=== PATIENT | female | born 1990 | race Caucasian/White ===

== ENCOUNTER 2017-11-01 14:06 | Inpatient (IN) | payer OTHER ==
[~2017-11-01] VITALS: Ht 172.7 cm; Wt 79.5 kg
[2017-11-03] MEDS: LACTATED RINGERS 1,000 ML IV SCH (20:50)
[2017-11-03] MEDS: D5%-LACTATED RINGERS 1,000 ML IV SCH (20:55)
[2017-11-03] MEDS ORDERED: OXYTOCIN 30U/ 0.9% NaCL 500ML 500 ML IV PRN ×2 (20:55)
[2017-11-03] MEDS ORDERED: AMPICILLIN 2 GM in SODIUM CHLORIDE 0.9% 100 ML IVPB STA (20:55)
[2017-11-03] MEDS ORDERED: OXYTOCIN 30U/ 0.9% NaCL 500ML 500 ML IV ONE (20:55)
[2017-11-03] MEDS ORDERED: FENTANYL PF 100 MCG/2ML IV PRN (21:00)
[2017-11-03] MEDS ORDERED: SODIUM CITRATE/CITRIC ACID 30 ML UDC PO PRN (21:00)
[2017-11-03] MEDS ORDERED: ONDANSETRON 2MG/ML, 2ML IVPush PRN (21:00)
[2017-11-03 21:19] LABS: BASOPHILS # (AUTO) 0.05 x10^3/uL (0-0.1); BASOPHILS % (AUTO) 1 % (0-1); EOSINOPHILS # (AUTO) 0.02 x10^3/uL (0-0.4); EOSINOPHILS % (AUTO) 0 % (1-7); LYMPHOCYTES # (AUTO) 1.58 x10^3/uL (1-3.4); LYMPHOCYTES % (AUTO) 16 % (22-44); MD NO; MEAN CORPUSCULAR HEMOGLOBIN 30.2 pg (27.0-34.8); MEAN CORPUSCULAR VOLUME 88.7 fL (80-100); MONOCYTES # (AUTO) 0.56 x10^3/uL (0.2-0.8); MONOCYTES % (AUTO) 6 % (2-9); NEUTROPHILS # (AUTO) 7.66 x10^3/uL (1.8-6.8); NEUTROPHILS % (AUTO) 78 % (42-75); PLATELET COUNT 134 x10^3/uL (130-400); RED BLOOD COUNT 4.43 x10^6/uL (3.82-5.3); RED CELL DISTRIBUTION WIDTH 13.9 % (9.6-15.2)
[2017-11-03 21:23] VITALS: BP 133/86
[2017-11-03] MEDS ORDERED: PREN-3 PO (22:29)
[2017-11-03] MEDS ORDERED: OXYTOCIN 30U/ 0.9% NaCL 500ML 500 ML ONE (22:30)
[2017-11-03] MEDS ORDERED: MISOPROSTOL 200 MCG TABLET ONE (22:31)
[2017-11-03] MEDS ORDERED: LIDOCAINE 1%, 20ML ONE (22:31)
[2017-11-04] MEDS: AMPICILLIN 1 GM in SODIUM CHLORIDE 0.9% 50 ML IVPB SCH ×4 (01:47→13:00)
[2017-11-04] MEDS: LACTATED RINGERS 1,000 ML IV SCH ×2 (04:31→12:55)
[2017-11-04] MEDS: D5%-LACTATED RINGERS 1,000 ML IV SCH ×2 (04:55→12:55)
[2017-11-04] MEDS ORDERED: FENTANYL PF 100 MCG/2ML ONE ×2 (06:49→08:00)
[2017-11-04] MEDS: FENTANYL PF 100 MCG/2ML IVPush PRN ×2 (06:51→08:00)
[2017-11-04] MEDS ORDERED: FENTANYL/BUPIV./NS/PF 250 ML EPIDCONT ONE ×2 (08:14→08:16)
[2017-11-04] MEDS ORDERED: LIDOCAINE-MPF 2% ,5ML ONE (08:14)
[2017-11-04] MEDS ORDERED: NEWBORN KIT ONE (08:15)
[2017-11-04] MEDS ORDERED: FENTANYL/BUPIV./NS/PF 250 ML EPIDCONT SCH (08:42)
[2017-11-04] MEDS ORDERED: LACTATED RINGERS 1,000 ML IV SCH (08:42)
[2017-11-04] MEDS ORDERED: LACTATED RINGERS 1,000 ML IVBOLUS PRN (09:00)
[2017-11-04] MEDS ORDERED: NALOXONE 0.4 MG/ML, 1ML IVPush PRN (09:00)
[2017-11-04] MEDS ORDERED: EPHEDRINE 50 MG/ML, 1ML IVPush PRN (09:00)
[2017-11-04] MEDS ORDERED: IBUPROFEN 600 MG TABLET ONE (13:20)
[2017-11-04] MEDS ORDERED: OXYcodone/APAP 5/325MG TABLET ONE (13:20)
[2017-11-04] MEDS ORDERED: OXYTOCIN 30U/ 0.9% NaCL 500ML 500 ML ONE (13:20)
[2017-11-04] MEDS ORDERED: OXYTOCIN 30U/ 0.9% NaCL 500ML 500 ML IV SCH (13:38)
[2017-11-04] MEDS: IBUPROFEN 600 MG TABLET PO PRN (13:44)
[2017-11-04] MEDS ORDERED: ONDANSETRON 2MG/ML, 2ML IV PRN (14:00)
[2017-11-04] MEDS ORDERED: OXYcodone/APAP 5/325MG TABLET PO PRN (14:00)
[2017-11-04 15:50] VITALS: BP 125/79
[2017-11-04 20:20] VITALS: BP 131/82
[2017-11-04 21:44] LABS: BASOPHILS # (AUTO) 0.04 x10^3/uL (0-0.1); BASOPHILS % (AUTO) 0 % (0-1); EOSINOPHILS # (AUTO) 0.01 x10^3/uL (0-0.4); EOSINOPHILS % (AUTO) 0 % (1-7); LYMPHOCYTES # (AUTO) 1.54 x10^3/uL (1-3.4); LYMPHOCYTES % (AUTO) 13 % (22-44); MD NO; MEAN CORPUSCULAR HEMOGLOBIN 30.3 pg (27.0-34.8); MEAN CORPUSCULAR HGB CONC 33.8 g/dL (32.4-35.8); MEAN CORPUSCULAR VOLUME 89.6 fL (80-100); MEAN PLATELET VOLUME 10.4 fL (7.4-10.4); MONOCYTES # (AUTO) 0.62 x10^3/uL (0.2-0.8); MONOCYTES % (AUTO) 5 % (2-9); NEUTROPHILS # (AUTO) 9.78 x10^3/uL (1.8-6.8); NEUTROPHILS % (AUTO) 82 % (42-75); PLATELET COUNT 117 x10^3/uL (130-400); RED BLOOD COUNT 3.71 x10^6/uL (3.82-5.3); RED CELL DISTRIBUTION WIDTH 14.3 % (9.6-15.2)
[2017-11-05] MEDS: IBUPROFEN 600 MG TABLET PO PRN ×3 (00:09→15:01)
[2017-11-05] MEDS: DOCUSATE 100 MG CAPSULE PO PRN ×2 (00:09→10:25)
[2017-11-05 00:15] VITALS: BP 130/79
[2017-11-05 04:15] VITALS: BP 122/73
[2017-11-05 07:30] VITALS: BP 127/75
[2017-11-05] MEDS: PRENATAL VIT/IRON/FA 1 EACH TABLET PO SCH (10:25)
[2017-11-05 12:00] VITALS: BP_SYST 136; BP_SYST 147; BP_DIAS 87; BP_DIAS 94
[2017-11-05 19:30] VITALS: BP 146/92
[2017-11-06] MEDS: IBUPROFEN 600 MG TABLET PO PRN (02:39)
[2017-11-06 08:15] VITALS: BP 136/90
[2017-11-06] MEDS: PRENATAL VIT/IRON/FA 1 EACH TABLET PO SCH (08:33)
[2017-11-06] MEDS: DOCUSATE 100 MG CAPSULE PO PRN (08:34)
[2017-11-06] MEDS ORDERED: IBUP-1222 PO (13:02)
== END 2017-11-06 16:31 | disposition home or self-care (01) | DRG 775 ==
LOC: LDIP 11-03 19:55 → 2NW 11-04 15:00
PROVIDERS: ADMIT Obstetrics & Gynecology; ATTEND Obstetrics & Gynecology
PROC: 10E0XZZ Delivery of Products of Conception, External Approach (ICD-10-PCS; principal; 2017-11-04)
PROC: 3E033VJ Introduction of Other Hormone into Peripheral Vein, Percutaneous Approach (ICD-10-PCS; 2017-11-04)
PROC: 3E0R3BZ Introduction of Anesthetic Agent into Spinal Canal, Percutaneous Approach (ICD-10-PCS; 2017-11-04)
PROC: 00HU33Z Insertion of Infusion Device into Spinal Canal, Percutaneous Approach (ICD-10-PCS; 2017-11-04)
PROC: 0UQGXZZ Repair Vagina, External Approach (ICD-10-PCS; 2017-11-04)
DX: O13.4 Gestational [pregnancy-induced] hypertension without significant proteinuria, complicating childbirth (principal); O71.4 Obstetric high vaginal laceration alone; O14.04 Mild to moderate pre-eclampsia, complicating childbirth; O99.824 Streptococcus B carrier state complicating childbirth; O69.81X0 Labor and delivery complicated by cord around neck, without compression, not applicable or unspecified; Z37.0 Single live birth; Z3A.40 40 weeks gestation of pregnancy; Z90.49 Acquired absence of other specified parts of digestive tract
CPT/HCPCS: 36415; 85025; 86850; 86900; J0290; J3010; J2590; J7120

== ENCOUNTER 2017-11-03 11:54 | Outpatient (CLI) | payer OTHER ==
[~2017-11-03] VITALS: Ht 172.7 cm; Wt 79.5 kg
[2017-11-03 12:07] VITALS: BP 148/99
[2017-11-03 12:42] LABS: BASOPHILS # (AUTO) 0.03 x10^3/uL (0-0.1); BASOPHILS % (AUTO) 0 % (0-1); EOSINOPHILS # (AUTO) 0.02 x10^3/uL (0-0.4); EOSINOPHILS % (AUTO) 0 % (1-7); LYMPHOCYTES # (AUTO) 1.33 x10^3/uL (1-3.4); LYMPHOCYTES % (AUTO) 13 % (22-44); MD NO; MEAN CORPUSCULAR HEMOGLOBIN 30.1 pg (27.0-34.8); MEAN CORPUSCULAR HGB CONC 33.8 g/dL (32.4-35.8); MEAN CORPUSCULAR VOLUME 89.1 fL (80-100); MEAN PLATELET VOLUME 10.8 fL (7.4-10.4); MONOCYTES % (AUTO) 5 % (2-9); NEUTROPHILS # (AUTO) 8.03 x10^3/uL (1.8-6.8); NEUTROPHILS % (AUTO) 81 % (42-75); PLATELET COUNT 132 x10^3/uL (130-400); RED BLOOD COUNT 4.34 x10^6/uL (3.82-5.3); RED CELL DISTRIBUTION WIDTH 13.8 % (9.6-15.2)
[2017-11-03 12:52] LABS: MICROSCOPIC INDICATED
[2017-11-03 12:52] LABS: ALANINE AMINOTRANSFERASE 15 U/L (12-78); ALBUMIN 2.8 g/dL (3.4-5.0); ANION GAP 11 mmol/L (5-15); CALCIUM 8.3 mg/dL (8.5-10.1); CHLORIDE 108 mmol/L (98-107); CREATININE 0.64 mg/dL (0.55-1.02)
[2017-11-03 12:55] LABS: ALKALINE PHOSPHATASE 153 U/L (45-117); BILIRUBIN,TOTAL 0.3 mg/dL (0.2-1.0); TOTAL PROTEIN 6.6 g/dL (6.4-8.2)
[2017-11-03 13:32] LABS: CREATININE,URINE RANDOM 92.8 mg/dL
[2017-11-03] MEDS ORDERED: PREN-3 PO (22:29)
== END 2017-11-03 14:15 | disposition home or self-care (01) ==
LOC: LDOP 11:54
PROVIDERS: ATTEND Obstetrics & Gynecology
DX: O13.3 Gestational [pregnancy-induced] hypertension without significant proteinuria, third trimester (principal); Z3A.40 40 weeks gestation of pregnancy
CPT/HCPCS: 36415; 59025; 80053; 81001; 82570; 84156; 84550; 85025; 99201; G0463

== ENCOUNTER 2019-02-01 08:51 | Emergency (ER) | payer OTHER ==
[~2019-02-01] VITALS: Ht 170.2 cm; Wt 58.7 kg
[~2019-02-01 08:51] MED LIST: DOXY100C2 PO; IBUP-1222 PO; PREN-3 PO
--- NOTE | 2019-02-01 09:07 | NUR ---
PATIENT SENT FROM [facility] FOR PALPITATIONS/SOB X 2 DAYS, CXR/FLU/STREP/EKG NEGATIVE AT PER PATIENT. NO MEDICAL HX, RECENT TRAVEL TO/FROM [place] LAST WEEK ([address]) AND CONTROL USE, PATIENT REPORTS FEELING SICK WITH COUGH LAST TH. PHOTO FINISHER ON PATIENT, A+OX4, ALL VSS EXCEPT HR 110'S-140'S. SKIN WARM, PINK, DRY. AWAITING MD ORDERS, CALL LIGHT WITHIN REACH. WARM BLANKET PROVIDED.
--- NOTE | 2019-02-01 09:17 | NUR ---
LAB AT BEDSIDE.
[2019-02-01 09:35] LABS: BASOPHILS # (AUTO) 0.04 x10^3/uL (0-0.1); BASOPHILS % (AUTO) 1 % (0-1); EOSINOPHILS # (AUTO) 0.02 x10^3/uL (0-0.4); EOSINOPHILS % (AUTO) 0 % (1-7); LYMPHOCYTES # (AUTO) 0.98 x10^3/uL (1-3.4); LYMPHOCYTES % (AUTO) 11 % (22-44); MD NO; MEAN CORPUSCULAR HEMOGLOBIN 28.8 pg (27.0-34.8); MEAN CORPUSCULAR HGB CONC 32.6 g/dL (32.4-35.8); MEAN CORPUSCULAR VOLUME 88.4 fL (80-100); MEAN PLATELET VOLUME 8.6 fL (7.4-10.4); MONOCYTES # (AUTO) 0.53 x10^3/uL (0.2-0.8); MONOCYTES % (AUTO) 6 % (2-9); NEUTROPHILS # (AUTO) 7.36 x10^3/uL (1.8-6.8); NEUTROPHILS % (AUTO) 82 % (42-75); PLATELET COUNT 180 x10^3/uL (130-400); RED BLOOD COUNT 4.83 x10^6/uL (3.82-5.3); RED CELL DISTRIBUTION WIDTH 13.1 % (9.6-15.2)
[2019-02-01 09:49] LABS: ALBUMIN 4.3 g/dL (3.4-5.0); ANION GAP 8 mmol/L (5-15); CALCIUM 8.9 mg/dL (8.5-10.1); CHLORIDE 108 mmol/L (98-107)
[2019-02-01] MEDS ORDERED: KETOROLAC 30 MG/1 ML ONE (09:51)
[2019-02-01 09:55] LABS: ALANINE AMINOTRANSFERASE 20 U/L (12-78); ALKALINE PHOSPHATASE 65 U/L (45-117); BILIRUBIN,TOTAL 0.7 mg/dL (0.2-1.0); CREATININE 0.73 mg/dL (0.55-1.02); TOTAL PROTEIN 7.9 g/dL (6.4-8.2)
[2019-02-01] MEDS ORDERED: SODIUM CHLORIDE FLUSH 10ML SYR IVF ONE (10:00)
[2019-02-01] MEDS ORDERED: KETOROLAC 30 MG/1 ML IVPush ONE (10:00)
[2019-02-01] MEDS ORDERED: SODIUM CHLORIDE 0.9% 1,000ML IVBOLUS ONE (10:00)
--- NOTE | 2019-02-01 10:02 | NUR ---
NEW ORDERS, VS UPDATED IN CHART, IV STARTED, MEDICATIONS ADMINISTERED PER ORDER. PATIENT SITTING IN GURNEY, NAD NOTED. CALL LIGHT WITHIN REACH.
[2019-02-01 10:51] VITALS: BP 107/63
--- NOTE | 2019-02-01 10:51 | NUR ---
IVF COMPLETED, VSS AND UPDATED IN CHART, CHART UP FOR RECHECK.
== END 2019-02-01 11:32 | disposition home or self-care (01) ==
LOC: ED 11:26
DX: J00 Acute nasopharyngitis [common cold] (principal)
CPT/HCPCS: 36415; 80053; 84703; 85025; 96374; 99283; J1885; J7030

== ENCOUNTER 2020-07-09 09:37 | Outpatient (CLI) | payer OTHER | END 2020-07-09 23:59 | disposition home or self-care (01) | LOC: LAB 09:37 | PROVIDERS: ATTEND Obstetrics & Gynecology | DX: Z13.79 Encounter for other screening for genetic and chromosomal anomalies (principal) | CPT/HCPCS: 82105; 82677; 84702; 86336 ==

== ENCOUNTER 2020-12-06 13:30 | Inpatient (IN) | payer OTHER ==
[~2020-12-06] VITALS: Ht 172.7 cm; Wt 76.4 kg
[2020-12-06] MEDS ORDERED: TERBUTALINE 1 MG/ML, 1ML SQ PRN (16:00)
[2020-12-06] MEDS ORDERED: ONDANSETRON 2MG/ML, 2ML IVPush PRN (16:00)
[2020-12-06] MEDS ORDERED: FENTANYL PF 100 MCG/2ML IVPush PRN (16:00)
[2020-12-06] MEDS ORDERED: OXYTOCIN 30U/ 0.9% NaCL 500ML 500 ML IV ONE (16:00)
[2020-12-06] MEDS ORDERED: TERBUTALINE 1 MG/ML, 1ML IVPush PRN (16:00)
[2020-12-06] MEDS ORDERED: OXYTOCIN 30U/ 0.9% NaCL 500ML 500 ML IV PRN (16:00)
[2020-12-06 16:08] LABS: BASOPHILS % (AUTO) 0 % (0-1); EOSINOPHILS % (AUTO) 0 % (1-7); LYMPHOCYTES % (AUTO) 17 % (22-44); MEAN CORPUSCULAR HEMOGLOBIN 29.8 pg (27.0-34.8); MEAN CORPUSCULAR HGB CONC 33.5 g/dL (32.4-35.8); MEAN PLATELET VOLUME 10.3 fL (7.4-10.4); MONOCYTES % (AUTO) 7 % (2-9); NEUTROPHILS % (AUTO) 76 % (42-75); PLATELET COUNT 143 x10^3/uL (130-400); RED BLOOD COUNT 4.55 x10^6/uL (3.82-5.3); RED CELL DISTRIBUTION WIDTH 13.9 % (9.6-15.2)
[2020-12-06 16:15] LABS: MD NO
[2020-12-06] MEDS: MISOPROSTOL 25 MCG TABLET VG PRN ×2 (16:57→21:00)
[2020-12-06 17:05] VITALS: BP 126/69
[2020-12-06] MEDS ORDERED: PREN1TAB60 PO (17:05)
[2020-12-06] MEDS ORDERED: NEWBORN KIT ONE (18:00)
[2020-12-06 20:08] VITALS: BP 116/66
[2020-12-07] MEDS ORDERED: LIDOCAINE 1%, 20ML ONE (00:59)
[2020-12-07] MEDS ORDERED: MISOPROSTOL 200 MCG TABLET ONE (01:00)
[2020-12-07] MEDS ORDERED: OXYTOCIN 30U/ 0.9% NaCL 500ML 500 ML IV PRN (01:00)
[2020-12-07] MEDS: LACTATED RINGERS 1,000 ML IV SCH ×5 (01:23→20:00)
[2020-12-07] MEDS ORDERED: FENTANYL/BUPIV./NS/PF 250 ML EPIDCONT ONE (02:34)
[2020-12-07] MEDS ORDERED: BUPIVACAINE 0.25% ONE (02:34)
[2020-12-07] MEDS ORDERED: EPHEDRINE 50 MG/ML, 1ML IVPush PRN (03:00)
[2020-12-07] MEDS ORDERED: LACTATED RINGERS 1,000 ML IVBOLUS PRN (03:00)
[2020-12-07] MEDS ORDERED: ONDANSETRON 2MG/ML, 2ML IVPush PRN (03:00)
[2020-12-07] MEDS ORDERED: LACTATED RINGERS 1,000 ML IV SCH (03:00)
[2020-12-07] MEDS ORDERED: DIPHENHYDRAMINE 50 MG/ML, 1ML IVPush PRN (03:00)
[2020-12-07] MEDS ORDERED: NALOXONE 0.4 MG/ML, 1ML IVPush PRN (03:00)
[2020-12-07] MEDS ORDERED: FENTANYL/BUPIV./NS/PF 250 ML EPIDCONT SCH (03:00)
[2020-12-07] MEDS: D5%-LACTATED RINGERS 1,000 ML IV SCH ×2 (04:52→10:01)
[2020-12-07] MEDS ORDERED: SODIUM CITRATE/CITRIC ACID 15 ML UDC ONE (16:42)
[2020-12-07] MEDS ORDERED: METOCLOPRAMIDE 5 MG/ML, 2ML ONE (16:43)
[2020-12-07] MEDS ORDERED: ACETAMINOPHEN 500 MG TABLET ONE (16:55)
[2020-12-07] MEDS: AMPICILLIN 2 GM in SODIUM CHLORIDE 0.9% 100 ML IV SCH ×2 (17:00→23:50)
[2020-12-07] MEDS ORDERED: ACETAMINOPHEN 500 MG TABLET PO ONE (17:30)
[2020-12-07] MEDS ORDERED: GENTAMICIN 140 MG in SODIUM CHLORIDE 0.9% 50 ML IV SCH (18:00)
[2020-12-07] MEDS ORDERED: GENTAMICIN PER PHARMACY MC PRN (18:00)
[2020-12-07] MEDS ORDERED: PHARMACOKINETIC MONITORING MC PRN (18:00)
[2020-12-07] MEDS ORDERED: HYDROmorphone 2 MG/ML, 1ML ONE (18:12)
[2020-12-07] MEDS ORDERED: ONDANSETRON 2MG/ML, 2ML ONE (18:12)
[2020-12-07] MEDS ORDERED: CEFAZOLIN 1,000 MG ONE (18:12)
[2020-12-07] MEDS ORDERED: FENTANYL PF 100 MCG/2ML ONE (18:12)
[2020-12-07] MEDS ORDERED: OXYTOCIN 10 UNITS/ML, 1ML ONE (18:12)
[2020-12-07] MEDS ORDERED: MEPERIDINE/PF 50 MG/ML ONE (18:34)
[2020-12-07] MEDS ORDERED: KETOROLAC 30 MG/1 ML ONE (18:44)
[2020-12-07] MEDS ORDERED: IBUPROFEN 200 MG TABLET PO PRN (20:00)
[2020-12-07] MEDS ORDERED: DIPH,PERTUSS(ACELL),TET VAC/PF NC IM-VACC PRN (20:00)
[2020-12-07] MEDS ORDERED: METHYLERGONOVINE 0.2 MG/ML IM PRN (20:00)
[2020-12-07] MEDS ORDERED: MISOPROSTOL 200 MCG TABLET SL PRN (20:00)
[2020-12-07] MEDS ORDERED: MORPHINE SULFATE 4 MG/ML, 1ML IVPush PRN (20:00)
[2020-12-07] MEDS: OXYTOCIN 30U/ 0.9% NaCL 500ML 500 ML IV SCH (20:00)
[2020-12-07] MEDS ORDERED: IBUPROFEN 800 MG TABLET PO PRN (20:00)
[2020-12-07] MEDS ORDERED: CALCIUM CARBONATE 500 MG TAB.CHEW PO PRN (20:00)
[2020-12-07] MEDS ORDERED: KETOROLAC 30 MG/1 ML IV SCH (20:00)
[2020-12-07] MEDS ORDERED: ONDANSETRON 2MG/ML, 2ML IV PRN (20:00)
[2020-12-07] MEDS ORDERED: METOCLOPRAMIDE 5 MG/ML, 2ML IV PRN (20:00)
[2020-12-07] MEDS ORDERED: DOCUSATE 100 MG CAPSULE PO SCH (21:00)
[2020-12-07 21:18] VITALS: BP 119/76
[2020-12-07 23:46] VITALS: BP 103/63
[2020-12-08] MEDS: KETOROLAC 30 MG/1 ML IV SCH ×4 (01:57→20:49)
[2020-12-08] MEDS: GENTAMICIN 140 MG in SODIUM CHLORIDE 0.9% 50 ML IV SCH ×3 (02:30→18:02)
[2020-12-08] MEDS: LACTATED RINGERS 1,000 ML IV SCH ×5 (03:32→20:00)
[2020-12-08 03:41] LABS: BASOPHILS % (AUTO) 0 % (0-1); EOSINOPHILS % (AUTO) 0 % (1-7); LYMPHOCYTES % (AUTO) 11 % (22-44); MEAN CORPUSCULAR HEMOGLOBIN 29.9 pg (27.0-34.8); MEAN CORPUSCULAR HGB CONC 33.7 g/dL (32.4-35.8); MEAN PLATELET VOLUME 10.2 fL (7.4-10.4); MONOCYTES % (AUTO) 5 % (2-9); NEUTROPHILS % (AUTO) 83 % (42-75); PLATELET COUNT 116 x10^3/uL (130-400); RED BLOOD COUNT 3.94 x10^6/uL (3.82-5.3)
[2020-12-08 03:52] LABS: MD NO
[2020-12-08 04:29] VITALS: BP 104/62
[2020-12-08] MEDS: OXYcodone IR 5MG TABLET PO PRN ×5 (05:24→22:33)
[2020-12-08] MEDS: AMPICILLIN 2 GM in SODIUM CHLORIDE 0.9% 100 ML IV SCH ×3 (05:25→17:07)
[2020-12-08] MEDS: OXYTOCIN 30U/ 0.9% NaCL 500ML 500 ML IV SCH ×2 (05:34→16:00)
[2020-12-08 07:50] VITALS: BP 111/73
[2020-12-08] MEDS: DOCUSATE 100 MG CAPSULE PO SCH ×2 (08:00→20:49)
[2020-12-08] MEDS: PRENATAL VIT/IRON/FA 1 EACH TABLET PO SCH (08:00)
[2020-12-08] MEDS: ACETAMINOPHEN 325 MG TABLET PO PRN ×2 (09:20→13:20)
[2020-12-08 11:55] VITALS: BP 111/74
[2020-12-08 16:20] VITALS: BP 107/67
[2020-12-08 20:10] VITALS: BP 112/74
[2020-12-09] MEDS: OXYTOCIN 30U/ 0.9% NaCL 500ML 500 ML IV SCH ×3 (01:21→22:00)
[2020-12-09] MEDS: LACTATED RINGERS 1,000 ML IV SCH ×6 (01:21→22:00)
[2020-12-09] MEDS: IBUPROFEN 600 MG TABLET PO PRN ×4 (02:41→21:16)
[2020-12-09] MEDS: OXYcodone IR 5MG TABLET PO PRN ×4 (02:42→18:30)
[2020-12-09 07:40] VITALS: BP 110/74
[2020-12-09] MEDS: ACETAMINOPHEN 325 MG TABLET PO PRN ×2 (08:27→14:34)
[2020-12-09] MEDS: SIMETHICONE 80 MG CHEW TAB PO PRN ×3 (08:27→21:17)
[2020-12-09] MEDS: PRENATAL VIT/IRON/FA 1 EACH TABLET PO SCH (08:27)
[2020-12-09] MEDS: DOCUSATE 100 MG CAPSULE PO SCH ×2 (08:27→21:17)
[2020-12-09 20:45] VITALS: BP 114/72
[2020-12-10] MEDS: LACTATED RINGERS 1,000 ML IV SCH ×2 (04:00→08:00)
[2020-12-10] MEDS: IBUPROFEN 600 MG TABLET PO PRN (04:36)
[2020-12-10] MEDS ORDERED: OXYC-302 PO (06:13)
[2020-12-10] MEDS: DOCUSATE 100 MG CAPSULE PO SCH (07:45)
[2020-12-10] MEDS: ACETAMINOPHEN 325 MG TABLET PO PRN (07:45)
[2020-12-10] MEDS: PRENATAL VIT/IRON/FA 1 EACH TABLET PO SCH (07:45)
[2020-12-10] MEDS: SIMETHICONE 80 MG CHEW TAB PO PRN (07:46)
[2020-12-10] MEDS: OXYcodone IR 5MG TABLET PO PRN (07:48)
[2020-12-10 07:55] VITALS: BP 105/68
[2020-12-10] MEDS: OXYTOCIN 30U/ 0.9% NaCL 500ML 500 ML IV SCH (08:00)
[2020-12-10] MEDS ORDERED: IBUP-1222 PO (08:41)
== END 2020-12-10 09:50 | disposition home or self-care (01) | DRG 786 ==
LOC: LDIP 15:12 → 2NW 12-07 20:33
PROVIDERS: ADMIT Obstetrics & Gynecology; ATTEND Obstetrics & Gynecology
PROC: 10D00Z1 Extraction of Products of Conception, Low, Open Approach (ICD-10-PCS; principal; 2020-12-06)
DX: O69.81X0 Labor and delivery complicated by cord around neck, without compression, not applicable or unspecified (principal); O41.1230 Chorioamnionitis, third trimester, not applicable or unspecified; Z20.822 Contact with and (suspected) exposure to COVID-19; O62.1 Secondary uterine inertia; Z3A.39 39 weeks gestation of pregnancy; Z37.0 Single live birth; Z80.3 Family history of malignant neoplasm of breast; Z86.32 Personal history of gestational diabetes; Z87.410 Personal history of cervical dysplasia
CPT/HCPCS: 36415; J7121; 82565; 85025; 86592; 86850; 86900; 87635; G0378; J0290; J0690; J1170; J1885; J2175; J2405; J3010; J1580; J2590; J7120